=== PATIENT | female | born 1970 | race Caucasian/White ===

== ENCOUNTER → 2016-11-21 | Outpatient (CLI) | payer BC, OTHER ==
--- NOTE | 2016-11-21 08:45 | DIAGNOSTIC IMAGING REPORT ---
SINGLE VIEW PELVIS CLINICAL HISTORY: Bilateral buttock pain. FINDINGS: An AP pelvic radiograph is obtained. No prior studies are available for comparison at the time of dictation. The skeletal structures are well mineralized. No fracture is seen in the hips or bony pelvis. The joint spaces of the hips are maintained. Minimal sclerotic degenerative change is seen in the sacroiliac joints. Enthesophytes arise from the greater trochanter of the left femur. Calcified phleboliths are noted in the pelvis. There is a nonobstructed abdominal bowel gas pattern. IMPRESSION: No acute bony abnormality is identified in the hips or pelvis. Electronically signed by: Manolo Brown M.D. 11/21/2016 8:44 AM Dictated Date/Time: 11/21/2016 8:43 AM
== END | disposition home or self-care (01) ==
LOC: C.RDSM 14:18
PROVIDERS: ATTEND Family Medicine
DX: M79.1 Myalgia (principal)

== ENCOUNTER → 2016-12-14 | Outpatient (CLI) | payer BC ==
--- NOTE | 2016-12-15 06:56 | DIAGNOSTIC IMAGING REPORT ---
THREE-PHASE BONE SCAN OF THE FEET AND DELAYED BONE SCAN OF THE PELVIS AND HIPS CLINICAL HISTORY: Persistent foot and sacral pain. Runner. COMPARISON STUDY: Pelvis radiograph November 21, 2016. TECHNIQUE: 25.8 mCi of technetium 99m MDP was injected IV at 10:40 AM on December 14, 2016. Blood flow and blood pool images of the feet were obtained. Delayed phase imaging of the pelvis, sacrum and hips as well as the feet was then performed 3 hours following injection. FINDINGS: No hyperemia is identified within either foot. There is mild uptake within the left midfoot, projecting over the medial cuneiform bone. No abnormal radiotracer uptake is identified within the pelvis, hips, sacrum or coccyx. Expected soft tissue and renal uptake is present. IMPRESSION: 1. No evidence of hyperemia within either foot. 2. Mild left midfoot radiotracer uptake projecting over the medial cuneiform. This may be degenerative or stress related. The degree of uptake is less than expected for acute fracture. 3. No abnormal uptake within the sacrum, coccyx, pelvis or hips. Electronically signed by: Aaron Cook M.D. 12/15/2016 6:55 AM Dictated Date/Time: 12/14/2016 2:40 PM
== END | disposition home or self-care (01) ==
LOC: C.NUCL 10:28
PROVIDERS: ATTEND Family Medicine
DX: M53.3 Sacrococcygeal disorders, not elsewhere classified (principal); M79.673 Pain in unspecified foot